=== PATIENT | female | born 1970 | race Caucasian/White ===

== ENCOUNTER 2017-01-09 19:42 | Emergency (ER) | payer MEDICARE ==
[2014-12-15 11:04] VITALS: BMI 47.7
[~2017-01-09 19:42] MED LIST: CALCIUM 600 +1 EAC3 PO; CELEXA40 MG PO; HYDROCODONE-APA1 TAB PO; NEURONTIN 300300 MG PO; PEPCID AC20 MG PO; PRILOSEC20 MG PO; REQUIP XL2 MG PO; ULTRAM50 MG PO; VITAMIN D50000 UNIT PO
[2017-01-09 20:50] LABS: APPEARANCE CLEAR (CLEAR); BILIRUBIN NEGATIVE (NEGATIVE); COLOR YELLOW (YELLOW); GLUCOSE NEGATIVE (NEGATIVE); KETONE NEGATIVE (NEGATIVE); LEUKOCYTE ESTERASE NEGATIVE (NEGATIVE); NITRITE NEGATIVE (NEGATIVE); PROTEIN NEGATIVE (NEGATIVE); UROBILINOGEN NORMAL (NORMAL)
[2017-01-09 21:18] LABS: BASOPHILS 0.1 % (0.0-2.0); EOSINOPHILS 3.6 % (0-7); HEMATOCRIT 41.4 % (36.0-48.0); HEMOGLOBIN 13.7 g/dL (12-16); IMMATURE GRANULOCYTES 0.2 % (0-5); LYMPHOCYTES 33.7 % (15-50); MCH 29.2 pg (26.0-34.0); MCHC 33.1 g/dL (31.0-37.0); MCV 88.3 fL (80.0-100.0); MEAN PLATELET VOLUME 9.8 fL (7.4-10.4); MONOCYTES 8.9 % (2-11); NEUTROPHILS 53.5 % (40-80); RBC 4.69 10x6/uL (4.00-5.40); RDW 15.3 % (11.5-14.5); WBC 10.1 10x3/uL (4.8-10.8)
[2017-01-09 21:20] LABS: PLATELET COUNT 235 10x3/uL (130-400)
[2017-01-09 21:42] LABS: ALBUMIN 3.4 g/dL (3.4-5.0); ALKALINE PHOSPHATASE 93 U/L (46-116); ALT (SGPT) 16 U/L (10-68); BILIRUBIN - TOTAL 0.38 mg/dL (0.2-1.3); CALC OSMOLALITY 276 mosm/kg (275-300); CARBON DIOXIDE 26.5 mmol/L (21.0-32.0); CHLORIDE - SERUM 103 mmol/L (98-107); CREATININE - SERUM 0.7 mg/dL (0.6-1.3); GLUCOSE 94 mg/dL (74-106); POTASSIUM - SERUM 3.9 mmol/L (3.5-5.1); SODIUM 140 mmol/L (136-145); UREA NITROGEN 7 mg/dL (7-18); eGFR NON AFRICAN AMERICAN > 90 mL/min (90-120)
[2017-01-09 21:48] LABS: HCG SERUM NEGATIVE (NEGATIVE)
== END 2017-01-09 23:58 | disposition home or self-care (01) ==
LOC: D.ER 19:42
PROVIDERS: Emergency Medicine
DX: R10.31 Right lower quadrant pain (principal); N93.9 Abnormal uterine and vaginal bleeding, unspecified; F17.200 Nicotine dependence, unspecified, uncomplicated

== ENCOUNTER → 2018-04-17 06:33 | Outpatient (CLI) | payer MEDICARE ==
[2014-12-15 11:04] VITALS: BMI 47.7
== END | disposition home or self-care (01) ==
LOC: D.MRI 06:33
DX: M54.16 Radiculopathy, lumbar region (principal)

== ENCOUNTER → 2018-11-25 06:41 | Outpatient (CLI) | payer MEDICARE ==
[2014-12-15 11:04] VITALS: BMI 47.7
== END | disposition home or self-care (01) ==
LOC: D.MRI 06:41
DX: M54.16 Radiculopathy, lumbar region (principal)

== ENCOUNTER 2019-05-21 05:13 | Day surgery (SDC) | payer MEDICARE ==
[~2019-05-21] VITALS: Ht 157.5 cm; Wt 109.1 kg
[~2019-05-21 05:13] MED LIST changes: +BUPROPION HCL150 M1; +CYCLOBENZAPRINE10 MG; +TOPROL XL50 MG; +ZOCOR20 MG PO
[2019-05-21 05:28] LABS: HEMATOCRIT 40.9 % (36.0-48.0); HEMOGLOBIN 13.6 g/dL (12-16); MCH 29.1 pg (26.0-34.0); MCHC 33.3 g/dL (31.0-37.0); MCV 87.6 fL (80.0-100.0); MEAN PLATELET VOLUME 8.9 fL (7.4-10.4); RBC 4.67 10x6/uL (4.00-5.40); WBC 10.9 10x3/uL (4.8-10.8)
[2019-05-21 06:34] VITALS: BP 111/69; Ht 157.5 cm; Wt 109.1 kg
[2019-05-21 07:07] LABS: HCG URINE NEGATIVE (NEGATIVE)
--- NOTE | 2019-05-21 10:16 | NUR ---
1005-REC'D FROM RR. DROWSY, EASILY AROUSED. VSS.PAIN TOLERABLE AT /10. FAMILY AT BEDSIDE. CL IN EASY REACH.
--- NOTE | 2019-05-21 13:20 | NUR ---
1223-DISCHARGE CRITERIA MET. VSS.IV REMOVED FROM RIGHT HAND WITH CATH INTACT,DISPOSED INTO SHARPS. COVERED WITH BANDAID. DRESSING TO BACK CDI. REVIEWED DISCHARGE INSTRUCTIONS,VERBALIZED UNDERSTANDING. ESCORTED OUT BY STAFF VIA W/C WITH BROTHER TO DRIVE HOME.DISCHARGE INSTRUCTIONS IN HAND
--- NOTE | 2019-05-28 14:03 | OP ---
PATIENT NAME: SIERRA GALLEGO MEDICAL RECORD: [id number] :74 LOCATION:[facility] ADMISSION DATE: SURGEON: YO DUMONT MD DATE OF OPERATION: 05/21/2019 PREOPERATIVE DIAGNOSES: Lumbar spinal stenosis and foraminal stenosis, L4-L5, right. POSTOPERATIVE DIAGNOSES: Lumbar spinal stenosis and foraminal stenosis, L4-L5, right with right L5 radiculopathy. SURGEON: Yo Dumont MD DESCRIPTION AND TECHNIQUE: After induction of general endotracheal anesthesia, the patient was rolled prone on a Riley frame. Lumbar spine was prepped and draped in usual sterile fashion. Fluoroscopic x-ray and spinal needle localized the L4-L5 interspace on the right side. A 1:100,000 epinephrine and 1% lidocaine was infiltrated into the subcutaneous tissues. A stab incision was created with a #11 blade. Series of dilators were used to advance a METRx retractor at the L4-L5 interspace on the right side. Level was confirmed with fluoroscopic x-ray. A microscope and Midas Moises drill were used to perform a laminotomy, medial facetectomy, and foraminotomy L4-L5 on the right. Hypertrophied ligamentum flavum was removed with Cloward rongeurs. Following this, the L5 nerve root was decompressed as well. Disc space was inspected and no significant nerve root compression was identified. Meticulous hemostasis was maintained throughout the wound. The wound was irrigated with copious amounts of Ancef irrigant solution. The fascia was closed with 2-0 Vicryl suture. Subdermal layer was closed with 3-0 Vicryl suture. The skin was closed with arnold. A sterile dressing was applied to the wound. The patient was awakened in good condition and taken to recovery. All counts were reported as correct. Estimated blood loss was minimal. TRANSINT:[id number] Voice Confirmation ID: [id number] DOCUMENT ID: [id number] YO DUMONT MD at 1403 CC: [id number] DICTATION DATE: 05/28/19 0740 CHANGE ATTENDANT: 05/28/19 0810 [facility] 05/21/19 [place] [address]
== END 2019-05-21 12:23 | disposition home or self-care (01) ==
LOC: D.OPS 05:13 → D.PAN 07:30 → D.OPS 12:23
PROVIDERS: Anesthesiology; ATTEND Neurological Surgery
DX: M48.061 Spinal stenosis, lumbar region without neurogenic claudication (principal); M54.16 Radiculopathy, lumbar region; Z01.812 Encounter for preprocedural laboratory examination

== ENCOUNTER 2019-05-23 13:36 | Emergency (ER) | payer MEDICARE ==
[~2019-05-23] VITALS: Ht 157.5 cm; Wt 110.0 kg
[2019-05-23 13:41] VITALS: Ht 157.5 cm; Wt 110.0 kg
[2019-05-23 14:26] VITALS: BP 120/84
== END 2019-05-23 14:53 | disposition home or self-care (01) ==
LOC: D.ER 13:36
DX: R20.2 Paresthesia of skin (principal)